=== PATIENT | male | born 2000 | race Caucasian/White ===

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

== ENCOUNTER 2020-11-23 | Emergency (ER) | payer BC | END 2020-11-23 19:45 | disposition home or self-care (01) | DX: E86.0 Dehydration (principal) | CPT/HCPCS: 36415; 80053; 81001; 83690; 83735; 85025; 96361; 96374; 99283 ==